=== PATIENT | male | born 1960 | race Caucasian/White ===

== ENCOUNTER 2018-02-04 13:29 | Day surgery (SDC) | payer BC, OTHER ==
[2018-01-31 09:30] VITALS: BMI 24.1
[~2018-02-04 13:29] MED LIST: LACTATED RINGERS 1,000 ML IV SCH; LIDOCAINE 1% 20 ML VIAL (10MG/ML) FOR IV START INTRADERMA PRN
[2018-02-04 13:45] VITALS: TEMP 98
[2018-02-04] MEDS ORDERED: LACTATED RINGERS 1,000 ML IV ONE (13:45)
[2018-02-04] MEDS ORDERED: PROPOFOL 10 MG/ML 20 ML VIAL IV ONE (15:45)
[2018-02-04] MEDS ORDERED: LIDOCAINE 1% INJ 10MG/ML (20 ML MDV) ONE (15:45)
[2018-02-04 16:14] VITALS: RESP 16
--- NOTE | 2018-02-04 16:30 | P.PCN ---
Date of Procedure: 02/04/18 Procedure(s) Performed: Procedure: Total colonoscopy. Preoperative diagnosis: Abdominal pain, rectal bleeding and history of polyps. Postoperative diagnosis: 1. Sigmoid diverticulosis with no evidence of acute diverticulitis or strictures. 2. Internal hemorrhoids with prominent anal papillae but no evidence of bleeding. 3. No polyps, tumors or obstruction. Preparation: HalfLytely prep. Sedation: Was provided by anesthesia. Brief clinical history: The patient is a 57-year-old male who is scheduled for this evaluation because of history of abdominal pains and rectal bleeding. The patient gave history of polyps and is due for surveillance exam. Procedure: With the patient on his left lateral decubitus position and after informed consent and adequate sedation, the perianal area was inspected and it did not show any fissures or fistulas. There were no masses felt on digital rectal examination. The Olympus CFQ 160L video colonoscope was then inserted in the rectum in the usual fashion and advanced to the cecum. I intubated the ileocecal valve and examined the terminal ileum as well. Terminal ileum and colon mucosa appeared healthy. No polyps or tumors were seen. Multiple diverticular orifices were seen scattered in the sigmoid with no evidence of acute diverticulitis or strictures. I retroflexed the endoscope in the rectum before the endoscope was withdrawn. Grade 2 internal hemorrhoids were noted as well as prominent anal papillae. There was no evidence of bleeding. The patient tolerated the procedure well. Plan: The patient was reassured. Discussed dietary measures and local care for hemorrhoids. He will follow up with you as planned and I recommended repeat exam in 5 years.
[2018-02-04 16:33] VITALS: BP 143/78; PULSE 87
== END 2018-02-04 16:37 | disposition home or self-care (01) ==
LOC: ORWHC2ENDO 13:29
DX: K62.5 Hemorrhage of anus and rectum (principal); K57.30 Diverticulosis of large intestine without perforation or abscess without bleeding; K64.1 Second degree hemorrhoids; K21.9 Gastro-esophageal reflux disease without esophagitis; I10 Essential (primary) hypertension; E78.5 Hyperlipidemia, unspecified; M19.90 Unspecified osteoarthritis, unspecified site; Z79.891 Long term (current) use of opiate analgesic; Z79.1 Long term (current) use of non-steroidal anti-inflammatories (NSAID); Z79.82 Long term (current) use of aspirin; Z79.899 Other long term (current) drug therapy; Z86.010 Personal history of colon polyps
CPT/HCPCS: 45378; J2001; J2704

== ENCOUNTER 2019-06-03 07:20 | Day surgery (SDC) | payer OTHER ==
[~2019-06-03 07:20] MED LIST changes: +DEXAMETHASONE SOD PHOSPHATE 10 MG/ML 1 ML VIAL IV ONE; +HEPARIN SODIUM,PORCINE 5,000 UNIT/ML 1 ML VIAL SQ ONE; -LACTATED RINGERS 1,000 ML IV SCH; +ONDANSETRON 4 MG/2 ML VIAL IVP ONE; +fentaNYL (PF) 50 MCG/ML 2 ML AMP IV PRN
[2019-06-03] MEDS: LACTATED RINGERS 1,000 ML IV SCH ×2 (07:53→07:54)
[2019-06-03 08:05] LABS: Basophils % (A) 0 %; Eosinophils # (A) 0.3 k/uL (0-0.7); Eosinophils % (A) 2 %; HCT 37.2 % (39.0-53.0); HGB 12.7 gm/dL (13.0-17.5); Lymphocytes # (A) 2.6 k/uL (1.0-4.8); Lymphocytes % (A) 21 %; MCH 30.1 pg (25.0-35.0); MCV 88.6 fL (80.0-100.0); Mean Platelet Volume 6.1; Monocytes # (A) 0.5 k/uL (0-1.0); Monocytes % (A) 4 %; Neutrophils # (A) 8.7 k/uL (1.3-7.7); Neutrophils % (A) 70 %; Platelet Count 252 k/uL (150-450); RDW 13.3 % (11.5-15.5); WBC 12.4 k/uL (3.8-10.6)
[2019-06-03] MEDS: MIDAZOLAM 2 MG/2 ML VIAL IV ONE ×2 (08:23→11:24)
[2019-06-03] MEDS ORDERED: fentaNYL (PF) 50 MCG/ML 2 ML AMP IV ONE (08:24)
--- NOTE | 2019-06-03 09:02 | P.ANPRN ---
Procedure Note - Anesthesia - Nerve Block Performed Bilateral Transversus Abdominis Single Time Out Performed: Yes Date of Procedure: 06/03/19 Procedure Start Time: Procedure Stop Time: : Location of Patient Procedure: PreOp Indication: Acute Post-Operative Pain, Requested by Surgeon Sedation Type: Sedate with meaningful contact maintained Position: Supine Catheter: None Needle Types: Pajunk Needle Gauge: 21 Ultrasound used to visualize needle placement: Yes Ultrasound used to observe medication spread: Yes Injectate: Other (see comment) ((0.5% ropivacaine 30ml + 10ml PFNS + decadron 4mg)-- 20ml per side) Blood Aspirated: No Pain Paresthesia on Injection Noted: No Resistance on Injection: Normal Image Stored and Saved: Yes Events: Uneventful and Well Tolerated
--- NOTE | 2019-06-03 09:18 | P.GSHP ---
History of Present Illness H&P Date: 06/03/19 Chief Complaint: Bilateral inguinal hernia This is a 59-year-old male who presents today for laparoscopic robotic-assisted repair of bilateral hernias. Patient developed tender masses in bilateral groins. Past Medical History Past Medical History: GERD/Reflux, GI Bleed, Hyperlipidemia, Hypertension, Osteoarthritis (OA) Additional Past Medical History / Comment(s): C/O "STOMACH PROBLEMS" SINCE REPAIR [facility] HERNIA; CURRENT HERNIA. RECENT STEROID TAKEN. DIFFICULTY SLEEPING. HX COLON POLYPS; OCC BLOOD IN STOOL. History of Any Multi-Drug Resistant Organisms: None Reported Past Surgical History: Hernia Repair, Orthopedic Surgery Additional Past Surgical History / Comment(s): RT HAND, RT SHOULDER SURG. COLONOSCOPY, EGD. Umbilical Hernia Repair 12/06/15 Past Anesthesia/Blood Transfusion Reactions: No Reported Reaction Past Psychological History: Anxiety, Bipolar, Depression Additional Psychological History / Comment(s): NO CURRENT TX D/T SIDE EFFECTS OF RX Smoking Status: Former smoker Past Alcohol Use History: None Reported Additional Past Alcohol Use History / Comment(s): SMOKED 5 YRS, 1 PPD, QUIT 1989; QUIT ETOH 2004. Past Drug Use History: Marijuana Additional Drug Use History / Comment(s): DAILY USE FOR PAIN, 2-3 X A DAY - Past Family History Daughter(s) Family Medical History: Cancer Additional Family Medical History / Comment(s): CERVICAL CA Mother Family Medical History: Cancer, Hypertension Father Family Medical History: No Reported History Medications and Allergies Home Medications Medication Instructions Recorded Confirmed Type amLODIPine BESYLATE/BENAZEPRIL 1 tab PO QAM 09/17/15 06/03/19 History [amLODIPine BESYLATE/BENAZEPRIL 5-10 mg] Atorvastatin Calcium [Lipitor] 20 mg PO HS 11/08/15 06/03/19 History Aspirin [Adult Low Dose Aspirin EC] 81 mg PO DAILY 01/31/18 06/03/19 History HYDROcodone/APAP 10-325MG [[place] 1 tab PO QID PRN 01/31/18 06/03/19 History 10-325] Megestrol Acetate 20 mg PO QAM 05/29/19 06/03/19 History Allergies Allergy/AdvReac Type Severity Reaction Status Date / Time No Known Allergies Allergy Verified 06/03/19 07:38 Surgical - Exam Vital Signs Temp Pulse Resp BP Pulse Ox 97.9 F 53 L 16 131/63 98 06/03/19 07:42 06/03/19 07:42 06/03/19 07:42 06/03/19 07:42 06/03/19 07:42 - General well developed, well nourished, no distress - Eyes PERRL - ENT normal pinna - Neck no masses - Respiratory normal expansion - Cardiovascular Rhythm: regular - Abdomen Abdomen: soft, non tender Hernia: inguinal (Reducible bilateral inguinal hernia) Results - Labs 06/03/19 07:51 Abnormal Lab Results - Last 24 Hours (Table) 06/03/19 Range/Units 07:51 WBC 12.4 H (3.8-10.6) k/uL RBC 4.20 L (4.30-5.90) m/uL Hgb 12.7 L (13.0-17.5) gm/dL Hct 37.2 L (39.0-53.0) % Neutrophils # 8.7 H (1.3-7.7) k/uL Assessment and Plan Assessment: Bilateral inguinal hernia. We'll perform laparoscopic robotic-assisted repair.
[2019-06-03] MEDS ORDERED: ROCURONIUM BROMIDE 10 MG/ML 10 ML VIAL IV ONE (09:32)
[2019-06-03] MEDS ORDERED: MIDAZOLAM 2 MG/2 ML VIAL ONE (09:32)
[2019-06-03] MEDS ORDERED: LIDOCAINE 1% INJ 10MG/ML (20 ML MDV) ONE (09:32)
[2019-06-03] MEDS ORDERED: fentaNYL (PF) 50 MCG/ML 2 ML AMP ONE (09:32)
[2019-06-03] MEDS ORDERED: DEXAMETHASONE SOD PHOSPHATE 4 MG/ML 1 ML VIAL ONE (09:32)
[2019-06-03] MEDS ORDERED: PROPOFOL 10 MG/ML 20 ML VIAL IV ONE (09:32)
[2019-06-03] MEDS ORDERED: KETAMINE 10 MG/ML 20 ML VIAL ONE (09:32)
[2019-06-03] MEDS ORDERED: KETOROLAC 30 MG/ML 1 ML VIAL ONE (09:32)
[2019-06-03] MEDS ORDERED: ROPIVACAINE 5 MG/ML 30 ML VIAL ONE (09:32)
[2019-06-03] MEDS ORDERED: BUPIVACAINE (PF) 0.25% 30 ML VIAL SQ ONE ×2 (09:52→10:05)
--- NOTE | 2019-06-03 10:59 | P.OP ---
Date of Procedure: 06/03/19 Preoperative Diagnosis: Bilateral inguinal hernia Postoperative Diagnosis: Bilateral inguinal hernia Procedure(s) Performed: Laparoscopic robotic system repair of bilateral inguinal hernia Anesthesia: [place] Surgeon: Mark Gallegos Estimated Blood Loss (ml): 5 Pathology: none sent Condition: stable Disposition: PACU Description of Procedure: The patient's placed on the operating table in the supine position. The patient received general anesthesia. The patient's abdomen was prepped and draped in usual sterile fashion. The skin was anesthetized 1% local Xylocaine at the incision sites. Using an 11 blade a skin incision was made at the umbilicus. The fascia was grasped with a Bibiana and then the peritoneal cavity was entered with the Veress needle. Position of the Veress needle was confirmed with a positive drop test. After adequate insufflation a 5 mm trocar was placed into the peritoneal cavity. The Laparoscope was placed the peritoneal cavity. And a robotic 8 mm trocar was placed in the right lateral position and then another 8 mm robotic trochars plac ed in the left lateral position. The original 5 mm trocar was exchanged for a 12 mm trocar. The patient was placed in reverse Trendelenburg and then the patient was docked to the robot. Next the peritoneum over top of the right inguinal hernia was incised and then using blunt and sharp dissection and electrocautery the hernia sac was dissected free from the floor of the inguinal canal. The hernia sac was completely reduced into the peritoneal cavity. And then using the Pro exhibits manager mesh the hernia was repaired. The peritoneum was then sutured with 20V lock suture. Next the peritoneum over top of the left inguinal hernia was incised and then using blunt and sharp dissection and electrocautery the hernia sac was dissected free from the floor of the inguinal canal. The hernia sac was completely reduced into the peritoneal cavity. And then using the Pro exhibits manager mesh the hernia was repaired. The peritoneum was then sutured with 20V lock suture. The patient was then undocked the robot. The needle was withdrawn from the peritoneal cavity. The umbilical trocar site was closed with 0 Ethibond suture. The skin was closed interrupted 3-0 Monocryl suture. Dermabond dressing was ap plied. Patient was sent to recovery in stable condition.
[2019-06-03] MEDS: HYDROmorphone 0.5 MG/0.5 ML SYRINGE IVP PRN ×6 (11:00→11:21)
[2019-06-03 11:01] VITALS: TEMP 97.1
[2019-06-03] MEDS ORDERED: HYDROcodone/APAP 10-325MG 1 EACH TAB PO ONE (12:10)
[2019-06-03 12:50] VITALS: BP 135/61; PULSE 76; RESP 16
== END 2019-06-03 12:40 | disposition home or self-care (01) ==
LOC: OR 07:20
PROVIDERS: ATTEND Surgery
DX: K40.20 Bilateral inguinal hernia, without obstruction or gangrene, not specified as recurrent (principal); K21.9 Gastro-esophageal reflux disease without esophagitis; E78.5 Hyperlipidemia, unspecified; I10 Essential (primary) hypertension; M19.90 Unspecified osteoarthritis, unspecified site; F41.9 Anxiety disorder, unspecified; F31.9 Bipolar disorder, unspecified; K92.2 Gastrointestinal hemorrhage, unspecified; R19.5 Other fecal abnormalities; Z86.010 Personal history of colon polyps; Z87.891 Personal history of nicotine dependence; Z80.49 Family history of malignant neoplasm of other genital organs; Z82.49 Family history of ischemic heart disease and other diseases of the circulatory system; Z79.82 Long term (current) use of aspirin; Z79.891 Long term (current) use of opiate analgesic; Z79.899 Other long term (current) drug therapy
CPT/HCPCS: 49650; S2900; 64488; 85025

== ENCOUNTER 2022-03-30 12:15 | Emergency (ER) | payer OTHER ==
[2022-03-30 12:28] VITALS: BP 166/84; PULSE 66; RESP 18; TEMP 98.9
[2022-03-30] MEDS ORDERED: LIDOCAINE 1% INJ 10MG/ML (20 ML MDV) SQ STA (12:38)
--- NOTE | 2022-03-30 13:19 | ED ---
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 He reports that he has had multiple lacerations past due to his occupation and that his tetanus shot is up-to-date. He denies any numbness, tingling, or range of motion impairment. His past medical history significant for chronic back pain, hypertension, hyperlipidemia and GERD. - Related Data Home Medications Medication Instructions Recorded Confirmed amLODIPine BESYLATE/BENAZEPRIL 1 tab PO QAM 09/17/15 06/03/19 [amLODIPine BESYLATE/BENAZEPRIL 5-10 mg] Atorvastatin Calcium [Lipitor] 20 mg PO HS 11/08/15 06/03/19 Aspirin [Adult Low Dose Aspirin EC] 81 mg PO DAILY 01/31/18 06/03/19 HYDROcodone/APAP 10-325MG [[place] 1 tab PO QID PRN 01/31/18 06/03/19 10-325] Megestrol Acetate 20 mg PO QAM 05/29/19 06/03/19 Allergies Allergy/AdvReac Type Severity Reaction Status Date / Time No Known Allergies Allergy Verified 03/30/22 12:28 Review of Systems ROS Statement: Those systems with pertinent positive or pertinent negative responses have been documented in the HPI. ROS Other: All systems not noted in ROS Statement are negative. Past Medical History Past Medical History: GERD/Reflux, GI Bleed, Hyperlipidemia, Hypertension, Osteoarthritis (OA) Additional Past Medical History / Comment(s): C/O "STOMACH PROBLEMS" SINCE REPAIR [facility] HERNIA; CURRENT HERNIA. RECENT STEROID TAKEN. DIFFICULTY SLEEPING. HX COLON POLYPS; OCC BLOOD IN STOOL. History of Any Multi-Drug Resistant Organisms: None Reported Past Surgical History: Hernia Repair, Orthopedic Surgery Additional Past Surgical History / Comment(s): RT HAND, RT SHOULDER SURG. COLONOSCOPY, EGD. Umbilical Hernia Repair 12/06/15 Past Anesthesia/Blood Transfusion Reactions: No Reported Reaction Past Psychological History: Anxiety, Bipolar, Depression Smoking Status: Never smoker Past Alcohol Use History: None Reported Past Drug Use History: Marijuana - Past Family History Daughter(s) Family Medical History: Cancer Additional Family Medical History / Comment(s): CERVICAL CA Mother Family Medical History: Cancer, Hypertension Father Family Medical History: No Reported History General Exam Limitations: no limitations Course Vital Signs 03/30/22 12:24 Temperature 98.9 F Pulse Rate 66 Respiratory 18 Rate Blood Pressure 166/84 O2 Sat by Pulse 98 Oximetry Procedures - Laceration Laceration #1 Consent Obtained: verbal consent Indication: laceration Site: other Size (cm): 1 (Index finger left) Description: linear Depth: simple, single layer Anesthetic Used: lidocaine 1% Anesthesia Technique: local infiltration Pre-repair: wound explored, irrigated extensively Type of Sutures: nylon Size of Sutures: 4-0 Number of Sutures: 2 Technique: simple, interrupted Patient Tolerated Procedure: well, no complications Laceration #2 Consent Obtained: verbal consent Indication: laceration Site: other Size (cm): 2 (left 2nd digit) Description: linear Anesthetic Used: lidocaine 1% Anesthesia Technique: local infiltration Pre-repair: irrigated extensively Type of Sutures: nylon Size of Sutures: 4-0 Number of Sutures: 5 Technique: simple, interrupted Patient Tolerated Procedure: well, no complications Laceration #3 Consent Obtained: verbal consent Indication: laceration Site: other Size (cm): 1 (left ringer finger) Description: linear Depth: simple, single layer Anesthetic Used: lidocaine 1% Anesthesia Technique: local infiltration Pre-repair: irrigated extensively Type of Sutures: nylon Size of Sutures: 4-0 Number of Sutures: 1 Technique: simple, interrupted Patient Tolerated Procedure: well, no complications Medical Decision Making - Medical Decision Making 62-year-old male with laceration to left second third and fourth on a circular saw. Tetanus shot up-to-date. No bone involvement. No indication for diagnostic imaging or laboratory studies. Suture closure of lacerations well tolerated. Wound stressed advised continue localized wound care and for sutures to be removed by his primary care provider in 7-10 days. Case discussed with Dr. Castro. Disposition Clinical Impression: Laceration of multiple sites of left hand and fingers Disposition: HOME SELF-CARE Condition: Stable Instructions (If sedation given, give patient instructions): Care For Your Stitches (DC), Laceration (ED) Additional Instructions: Please keep wound clean and dry. Monitor for signs and symptoms of infection. Please follow-up with your primary care provider urgent care or the emergency room to have sutures removed in 7-10 days. Please return to the Emergency Department if symptoms worsen or any other concerns. Is patient prescribed a controlled substance at d/c from ED?: No Referrals: None,Stated [Primary Care Provider] - 1-2 days Time of Disposition: 13:23
== END 2022-03-30 13:37 | disposition home or self-care (01) ==
LOC: EC 12:15
DX: S61.211A Laceration without foreign body of left index finger without damage to nail, initial encounter (principal); S61.215A Laceration without foreign body of left ring finger without damage to nail, initial encounter; S61.213A Laceration without foreign body of left middle finger without damage to nail, initial encounter; I10 Essential (primary) hypertension; E78.5 Hyperlipidemia, unspecified; Z79.899 Other long term (current) drug therapy; Z79.82 Long term (current) use of aspirin; W31.2XXA Contact with powered woodworking and forming machines, initial encounter; Y93.89 Activity, other specified; Y92.89 Other specified places as the place of occurrence of the external cause; Y99.0 Civilian activity done for income or pay
CPT/HCPCS: 99282; 12002; J2001

== ENCOUNTER → 2023-03-23 | Outpatient (CLI) | payer OTHER ==
--- NOTE | 2023-03-23 10:50 | XR ---
EXAMINATION TYPE: XR lumbosacral spine min 4V DATE OF EXAM: 03/23/2023 CLINICAL HISTORY: pain COMPARISON: NONE TECHNIQUE: Frontal, lateral, and oblique images of the lumbar spine are obtained. FINDINGS: There are 5 lumbar type vertebral bodies identified. The lumbar spine shows satisfactory alignment without evidence of acute fracture or dislocation. Vertebral body heights are within normal limits. Moderate multilevel degenerative disc space narrowing scattered spondylosis with facet joint arthropathy. The overlying soft tissue appears unremarkable. IMPRESSION: No acute fracture or dislocation is seen in the lumbar spine.ICD 10 NO FRACTURE, INITIAL EVALUATION
== END | disposition home or self-care (01) ==
LOC: RADXRMAIN 10:31
PROVIDERS: ATTEND Physical Medicine & Rehabilitation
DX: M54.50 Low back pain, unspecified (principal)
CPT/HCPCS: 72110